=== PATIENT | female | born 1945 | race Hispanic/Latino ===

== ENCOUNTER → 2023-09-11 | Outpatient (REF) | payer OTHER ==
[~2023-09-11] MED LIST: IOPAMIDOL 370 MG/ML 100 ML INFUS..BTL INJ ONE; METOPROLOL TARTRATE 25 MG TAB ONE; NITROGLYCERIN 0.4 MG SUBL ONE; SODIUM CHLORIDE 0.9% 100 ML ONE
[2023-09-11 08:34] LABS: CREATININE, SERUM 1.25 mg/dL (0.57-1.11)
== END ==
LOC: CT 07:31 → EDBD 08:30
PROVIDERS: ATTEND Internal Medicine Cardiovascular Disease
DX: I20.9 Angina pectoris, unspecified (principal); R94.39 Abnormal result of other cardiovascular function study
CPT/HCPCS: 36415; 75574; 82565; 84520; J7050; Q9967